=== PATIENT | female | born 2000 | race Caucasian/White ===

== ENCOUNTER 2024-11-23 18:13 | Emergency (ER) | payer MEDICAID ==
[~2024-11-23] VITALS: Ht 154.9 cm; Wt 113.0 kg
[2024-11-23 18:33] VITALS: O2SAT 98
[2024-11-23 18:56] LABS: BASOPHILS % 0.4 % (0.0-2.0); EOSINOPHILS % 1.1 % (0.0-5.0); HEMATOCRIT. 37.7 % (36.0-48.0); HEMOGLOBIN. 12.5 g/dL (12.0-16.0); LYMPHOCYTES % 30.5 % (20.0-50.0); MEAN PLATELET VOLUME 9.3 fl (7.4-10.4); MONOCYTES % 4.4 % (2.0-8.0); NEUTROPHILS % 63.6 % (40.0-76.0); PLATELET 253 x1000/uL (130-400); RED BLOOD CELL COUNT 4.47 mill/uL (4.2-5.4); RED CELL DISTRIBUTION WIDTH 13.3 % (11.6-14.6)
[2024-11-23 19:09] LABS: CREATININE 0.9 mg/dL (0.6-1.0); UREA NITROGEN BLOOD 10 mg/dL (9-23)
[2024-11-23 19:11] LABS: ASPARTATE AMINOTRANSFERASE 21 IU/L (<34)
[2024-11-23 19:12] LABS: BILIRUBIN DIRECT < 0.1 mg/dL (<=3.0); BILIRUBIN TOTAL 0.2 mg/dL (0.1-1.0); PROTEIN TOTAL 7.3 g/dL (6.0-8.3)
[2024-11-23 19:17] LABS: HCG SCREEN NEGATIVE
[2024-11-23] MEDS: FAMOTIDINE 20MG/2ML VIAL IV ONE (23:18)
[2024-11-23] MEDS: ONDANSETRON HCL 4MG/2ML INJ IV ONE (23:18)
[2024-11-23 23:25] VITALS: TEMP 36.9
[2024-11-24] MEDS ORDERED: METRONIDAZOLE 500 MG PREMIX 100 ML IV NR (00:45)
[2024-11-24] MEDS ORDERED: LEVOFLOXACIN 750MG PREMIX 150 ML IV NR (00:45)
[2024-11-24 00:55] VITALS: BP 131/79; PULSE 68; RESP 16; O2SAT 100
[2024-11-24] MEDS ORDERED: IOHEXOL-300 100 ML BOTTLE ONE (05:05)
== END 2024-11-24 01:05 | disposition left against medical advice (07) ==
LOC: ER 18:13
DX: K80.20 Calculus of gallbladder without cholecystitis without obstruction (principal); I10 Essential (primary) hypertension
CPT/HCPCS: 80076; 80048; 84703; 83690; 85025; 36415; 74177; 76705; 96374; 96375; 99285; J1308; J2405; Z7610 ×2; Q9967; A4606